=== PATIENT | female | born 1985 | race Caucasian/White ===

== ENCOUNTER 2023-07-16 08:59 | Outpatient (AMB) | payer MEDICAID, SELFPAY ==
--- NOTE | 2023-07-16 09:00 | A.OFFVIS_ITS ---
Intake Vital Signs 07/16/23 09:06 BP 128/84 Blood Pressure Location Lt radial Position Sitting Pulse 85 Pulse Source Pulse Oximeter Pulse Oximetry (%) 97 Oxygen Delivery Method Room Air Intake Visit Reasons: MAT Intake Intake Note: The patient presents for a mat intake Supervisor Engraving Required: No Allergies No Known Allergies [No Known Allergies*] Allergy (Unverified 07/16/23 09:08) Do you need a note to return to daycare/school/sports/work: No HPI MAT Intake HPI Details Patient presents for intake in evaluation. Interested in transitioning from methadone to buprenorphine with goal of Sublocade as a way to taper off of medications for opiate use disorder altogether. Started taper 11 weeks ago Was at 65mg methadone currently at 47mg Feels okay no withdrawal sx sponsor, therapist all on board with transition [facility] In recovery 2 years Prior to this patient had been using opiates for 7 years started off with pills following a back surgery-- transition to intranasal and IV heroin no history of etoh Treatment history: Multiple ATS admissions no history of overdsose No history of Suboxone Strong family history of addiction No BH history Medical history: Hepatitits C --in progress of starting treatment cholesystectomy nexplanon removed last week --will be transitioning to oral contraceptives Aside from multivitamins and methadone patient does not take any other medic ations NKA Lives with and twin toddler sons looking to go back to school Leslie Hodge -therapist [employer] [facility] Review of Systems Const Reports as per HPI and Reports no additional complaints Physical Exam Vital Signs: Last Vital Signs Pulse 85 07/16/23 09:06 BP 128/84 07/16/23 09:06 Pulse Ox 97 07/16/23 09:06 Oxygen Delivery Method Room Air 07/16/23 09:06 Const General: cooperative and healthy appearing Nutritional Appearance: average body habitus Orientation/consciousness: patient oriented x3 Neuro General: patient oriented x3 Psych Appearance: well kempt Speech and movement: Clear speech present Affect: normal affect Attitude: cooperative Thought process: Normal thought process present Thought content: Normal thought content present Insight: Good insight present (Psych) Judgement: Good judgement present (Psych) Results AMB 14 Panel Urine Drug Screen Urine Marijuana (THC) Negative Last Edit by Dorcas Palacios CMA on 07/16/23 10:25 Urine Cocaine Negative Last Edit by Dorcas Palacios CMA on 07/16/23 10:25 Urine Morphine Negative Last Edit by Dorcas Palacios CMA on 07/16/23 10:25 Urine Methamphetamine Negative Last Edit by Dorcas Palacios CMA on 07/16/23 10:25 Urine Amphetamine Negative Last Edit by Dorcas Palacios CMA on 07/16/23 10:2 5 Urine Benzodiazepine Negative Last Edit by Dorcas Palacios CMA on 07/16/23 10:25 Urine Barbiturates Negative Last Edit by Dorcas Palacios CMA on 07/16/23 10: 25 Urine Methadone Positive Last Edit by Dorcas Palacios CMA on 07/16/23 10:25 Urine Buprenorphine Negative Last Edit by Dorcas Palacios CMA on 07/16/23 10 :25 Urine Tricyclic Antidepressant Negative Last Edit by Dorcas Palacios CMA on 07/16/23 10:25 Urine MDMA Negative Last Edit by Dorcas Palacios CMA on 07/16/23 10:25 Urine Oxycodone Negative Last Edit by Dorcas Palacios CMA on 07/16/23 10:25 Urine Phencyclidine Negative Last Edit by Dorcas Palacios CMA on 07/16/23 10 :25 Urine Propoxyphene Negative Last Edit by Dorcas Palacios CMA on 07/16/23 10: 25 Results Reviewed Results Reviewed: Laboratory Last Values POC Urine Buprenorphine Negative 07/16/23 10:21 POC Urine Morphine Negative 07/16/23 10:21 POC Urine Oxycodone Negative 07/16/23 10:21 POC Urine Methadone Positive 07/16/23 10:21 POC Urine Propoxyphene Negative 07/16/23 10:21 POC Urine Barbiturates Negative 07/16/23 10:21 POC U Tricyclic Antidpr Negative 07/16/23 10:21 POC Urine PCP Negative 07/16/23 10:21 POC Ur Amphetamines Negative 07/16/23 10:21 POC Ur Methamphetamine Negative 07/16/23 10:21 POC Urine MDMA Negative 07/16/23 10:21 POC Ur Benzodiazepine Negative 07/16/23 10:21 POC Urine Cocaine Negative 07/16/23 10:21 POC Ur Marijuana (THC) Negative 07/16/23 10:21 Assessment & Plan Assessment & Plan (1) Opioid use disorder, severe, in sustained remission: Code(s): F11.21 - Opioid dependence, in remission Plan: * Review would transition plan from methadone to buprenorphine using low-dose buprenorphine. Reviewed with patient that she no longer needed to continue taper as the micro dose induction could restarted with current dose * Reviewed having to be stable on buprenorphine dose prior to transitioning to Sublocade * Patient has done a lot of research on her own and is very familiar with the medication and mechanism of action. * Releases of information signed for her OTP * Patient to discuss with her clinician at her clinic and then call the office to let us know if this is something she would like to continue moving forward with. Provided patient with written instructions on what titration of buprenorphine whilel on methadone would look like * Patient to follow-up Orders: Orders AMB 14 Panel Urine Drug Screen Today Z51.81 - Encounter for therapeutic drug level monitoring Coding Level of Care Code New Pt Level 4 (06587) Diagnoses Opioid use disorder, severe, in sustained remission F11.21
[2023-07-16 09:06] VITALS: BP 128/84; PULSE 85; O2SAT 97
== END 2023-07-16 09:47 | disposition home or self-care (01) ==
LOC: HO.HCC 08:59
PROVIDERS: PCP Physician Assistant; Visit Provider Nurse Practitioner Psychiatric/Mental Health
DX: Z51.81 Encounter for therapeutic drug level monitoring (principal); F11.21 Opioid dependence, in remission
CPT/HCPCS: 99204

== ENCOUNTER → 2023-07-16 08:59 | Outpatient (BNVA) | payer MEDICAID, SELFPAY | PROVIDERS: PCP Physician Assistant; Visit Provider Nurse Practitioner Psychiatric/Mental Health | DX: F11.21 Opioid dependence, in remission (principal); Z51.81 Encounter for therapeutic drug level monitoring; Z79.899 Other long term (current) drug therapy | CPT/HCPCS: 80305; 99202 ==

== ENCOUNTER 2023-08-01 13:47 | Outpatient (AMB) | payer MEDICAID, SELFPAY ==
--- NOTE | 2023-08-01 13:50 | A.OFFVIS_ITS ---
Intake Vital Signs 08/01/23 14:01 BP 122/84 Blood Pressure Location Lt radial Position Sitting Pulse 79 Pulse Source Pulse Oximeter Pulse Oximetry (%) 99 Oxygen Delivery Method Room Air Intake Visit Reasons: MAT Visit Intake Note: the patient presents for a mat visit Edge Glue Machine Tender Required: No Allergies No Known Allergies [No Known Allergies*] Allergy (Unverified 08/01/23 13:51) Do you need a note to return to daycare/school/sports/work: No HPI MAT Visit HPI Details Patient presents for follow up Transitioned form methadone to suboxone Still having some withdrawal sx--sweating and mild backache. Patient not concerned about these symptoms however she is visibly diaphoretic during our visit. She is reporting constipation. Last methadone dose was on 07/25 Discussed increasing dose to minimize current symptoms. Patient agreeable. Goal continues to be to transition to Sublocade Review of Systems Const Reports as per HPI and Reports no additional complaints Physical Exam Vital Signs: Last Vital Signs Pulse 79 08/01/23 14:01 BP 122/84 08/01/23 14:01 Pulse Ox 99 08/01/23 14:01 Oxygen Delivery Method Room Air 08/01/23 14:01 Const General: cooperative and healthy appearing Nutritional Appearance: average body habitus Orientation/consciousness: patient oriented x3 Neuro General: patient oriented x3 Psych Appearance: well kempt Speech and movement: Clear speech present Affect: normal affect Attitude: cooperative Thought process: Normal thought process present Thought content: Normal thought content present Insight: Good insight present (Psych) Judgement: Good judgement present (Psych) Assessment & Plan Assessment & Plan (1) Opioid use disorder, severe, in sustained remission: Code(s): F11.21 - Opioid dependence, in remission Plan: * Increased Suboxone dose to 12 mg b.i.d.. Discussed splitting afternoon dose in to if she felt it would be beneficial. * Colace to address constipation * Encouraged to call the office with any questions or concerns prior to next appointment Orders: Orders AMB 14 Panel Urine Drug Screen 08/01/23 Z51.81 - Encounter for therapeutic drug level monitoring Medications: New docusate sodium (Colace) 100 mg PO BID PRN 60 caps 0RF constipation buprenorphine-naloxone 12-3 mg (Suboxone) 1 film buccal BID 15 ea 0RF Discontinued buprenorphine-naloxone 2-0.5 mg (Suboxone) Discontinued Reason: Patient Completed Course 1 film sublingual BID 11 ea 0RF buprenorphine-naloxone 8-2 mg (Suboxone) to be started following induction with 2mg films Discontinued Reason: Patient Completed Course 1 film sublingual BID 14 ea 0RF Coding Level of Care Code Est Pt Level 4 (56925) Diagnoses Opioid use disorder, severe, in sustained remission F11.21
[2023-08-01 14:01] VITALS: BP 122/84; PULSE 79; O2SAT 99
== END 2023-08-01 14:20 | disposition home or self-care (01) ==
LOC: HO.HCC 13:47
PROVIDERS: PCP Physician Assistant; Visit Provider Nurse Practitioner Psychiatric/Mental Health
DX: Z51.81 Encounter for therapeutic drug level monitoring (principal)
CPT/HCPCS: 99214

== ENCOUNTER → 2023-08-01 13:47 | Outpatient (BNVA) | payer MEDICAID, SELFPAY | PROVIDERS: PCP Physician Assistant; Visit Provider Nurse Practitioner Psychiatric/Mental Health | DX: F11.20 Opioid dependence, uncomplicated (principal) | CPT/HCPCS: 80305; 99212 ==

== ENCOUNTER 2023-08-06 09:34 | Outpatient (AMB) | payer MEDICAID, SELFPAY ==
--- NOTE | 2023-08-06 09:36 | A.OFFVIS_ITS ---
Intake Vital Signs 08/06/23 09:42 BP 118/72 Blood Pressure Location Lt radial Position Sitting Pulse 83 Pulse Source Pulse Oximeter Pulse Oximetry (%) 96 Oxygen Delivery Method Room Air Intake Visit Reasons: MAT Visit Intake Note: the patient presents for a mat visit Operational Risk Manager Required: No Allergies No Known Allergies [No Known Allergies*] Allergy (Unverified 08/06/23 09:42) Do you need a note to return to daycare/school/sports/work: No HPI MAT Visit HPI Details Patient presents for follow-up. Dose increased during last visit to 12 mg b.i.d.. Patient reports that all withdrawal symptoms have resolved with dose increased. No longer experiencing diaphoresis, back pain or feeling that her nose is running. Constipation has also resolved with Colace. Would like to move forward with plan for injection. Review of Systems Const Reports as per HPI and Reports no additional complaints Physical Exam Vital Signs: Last Vital Signs Pulse 83 08/06/23 09:42 BP 118/72 08/06/23 09:42 Pulse Ox 96 08/06/23 09:42 Oxygen Delivery Method Room Air 08/06/23 09:42 Const General: cooperative, healthy appearing and no acute distress Limitations: no limitations Psych Appearance: well kempt Speech and movement: Clear speech present Affect: normal affect Attitude: cooperative Thought process: Normal thought process present Thought content: Normal thought content present Insight: Good insight present (Psych) Judgement: Good judgement present (Psych) Assessment & Plan Assessment & Plan (1) Opioid use disorder, severe, in sustained remission: Code(s): F11.21 - Opioid dependence, in remission Plan: * Continue Suboxone at 12 mg b.i.d. * Sublocade injection ordered. Discussed process for providing consent * Follow up 2 weeks Medications: New buprenorphine ER (Sublocade) 300 mg (1.5 mL) subcut .q 4 weeks 1.5 mL 5RF Coding Level of Care Code Est Pt Level 3 (12972) Diagnoses Opioid use disorder, severe, in sustained remission F11.21
[2023-08-06 09:42] VITALS: BP 118/72; PULSE 83; O2SAT 96
== END 2023-08-06 09:51 | disposition home or self-care (01) ==
LOC: HO.HCC 09:34
PROVIDERS: PCP Physician Assistant; Visit Provider Nurse Practitioner Psychiatric/Mental Health
DX: F11.21 Opioid dependence, in remission (principal)
CPT/HCPCS: 99213

== ENCOUNTER → 2023-08-06 09:34 | Outpatient (BNVA) | payer MEDICAID, SELFPAY | PROVIDERS: PCP Physician Assistant; Visit Provider Nurse Practitioner Psychiatric/Mental Health | DX: F11.20 Opioid dependence, uncomplicated (principal) | CPT/HCPCS: 99212 ==

== ENCOUNTER 2023-08-20 08:59 | Outpatient (AMB) | payer MEDICAID, SELFPAY ==
--- NOTE | 2023-08-20 09:12 | A.OFFVIS_ITS ---
Intake Vital Signs 08/20/23 10:06 BP 100/70 Blood Pressure Location Lt brachial Position Sitting Pulse 67 Pulse Oximetry (%) 97 Intake Visit Reasons: MAT Visit Allergies No Known Allergies [No Known Allergies*] Allergy (Unverified 08/06/23 09:42) HPI MAT Visit HPI Details Patient presents for OUD treatment follow up and 1st Sublocade injection. Has been tolerating Suboxone 24mg PO without any issues. Excited to start injection. No questions at this time Reviewed risks and potential side effects. Patient verbalized understaning Review of Systems Const Reports as per HPI and Reports no additional complaints Physical Exam Vital Signs: Last Vital Signs Pulse 67 08/20/23 10:06 BP 100/70 08/20/23 10:06 Pulse Ox 97 08/20/23 10:06 Const General: cooperative, healthy appearing and no acute distress Limitations: no limitations Psych Appearance: well kempt Speech and movement: Clear speech present Affect: normal affect Attitude: cooperative Thought process: Normal thought process present Thought content: Normal thought content present Insight: Good insight present (Psych) Judgement: Good judgement present (Psych) Office Meds Sublocade 300 mg/1.5 mL solution,extended release subcutaneous syringe Performing Provider: Fernanda Tucker CNP Performing Location: [facility] Administered by: Daiana Nevarez RN on 08/20/23 11:17 Dose Route Admin Location Dispensed Lot Number Expiration Date [facility] Lead [employer] 300 mg subcut RLQ 1.5 mL [id number] 01/23/25 [address]-1 [employer] Comments: Education provided, monitor site for pain, swelling, redness, discharge, fever, call [facility]. Reviewed patient education to leave site alone, no heat/ice, picking the area. Pt verbalized understanding. Pt tolerated injection. Results AMB Test Urine AMB Test Urine Negative Last Edit by Daiana Nevarez RN on 08/20/23 11:20 Results Reviewed Results Reviewed: Laboratory Last Values [facility] Negative 08/20/23 11:19 Assessment & Plan Assessment & Plan (1) Opioid use disorder, severe, in sustained remission: Code(s): F11.21 - Opioid dependence, in remission Plan: * tolerated injection * follow up 4 weeks * encouraged to call office with any concerns Orders: Orders AMB Buprenorphine Injection - Patient Supplied Today F11.21 - Opioid dependence, in remission AMB HCG Urine Test Today F11.21 - Opioid dependence, in remission Coding Level of Care Code Est Pt Level 3 (17909) Diagnoses Opioid use disorder, severe, in sustained remission F11.21
[2023-08-20 10:06] VITALS: BP 100/70; PULSE 67; O2SAT 97
== END 2023-08-20 10:04 | disposition home or self-care (01) ==
LOC: HO.HCC 08:59
PROVIDERS: PCP Physician Assistant; Visit Provider Nurse Practitioner Psychiatric/Mental Health
DX: F11.21 Opioid dependence, in remission (principal)
CPT/HCPCS: 99213; Q9992

== ENCOUNTER → 2023-08-20 08:59 | Outpatient (BNVA) | payer MEDICAID, SELFPAY | PROVIDERS: PCP Physician Assistant; Visit Provider Nurse Practitioner Psychiatric/Mental Health | DX: F11.21 Opioid dependence, in remission (principal); Z32.02 Encounter for pregnancy test, result negative | CPT/HCPCS: 81025; 96372; 99212 ==

== ENCOUNTER 2023-09-18 14:39 | Outpatient (AMB) | payer OTHER, SELFPAY ==
--- NOTE | 2023-09-18 14:47 | A.OFFVIS_ITS ---
Intake Vital Signs 09/18/23 14:57 BP 108/74 Blood Pressure Location Lt radial Position Sitting Pulse 76 Pulse Source Pulse Oximeter Pulse Oximetry (%) 98 Oxygen Delivery Method Room Air Intake Visit Reasons: MAT Visit Intake Note: The patient presents for a sub inj Exhaust Machine Operator Required: No Allergies No Known Allergies [No Known Allergies*] Allergy (Unverified 09/18/23 14:51) Do you need a note to return to daycare/school/sports/work: No HPI MAT Visit HPI Details Patient presents for follow up and Sublocade injection (#2) She is reporting a positive month and denies any withdrawal sx, or need to take bupre in btwn. She states that the evening of her first injection she had a headache and felt a bit tired, but that subsided and she was fine the following morning. 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 Bright affect, future oriented. Review of Systems Const Reports as per HPI and Reports no additional complaints Physical Exam Vital Signs: Last Vital Signs Pulse 76 09/18/23 14:57 BP 108/74 09/18/23 14:57 Pulse Ox 98 09/18/23 14:57 Oxygen Delivery Method Room Air 09/18/23 14:57 Office Meds Sublocade 300 mg/1.5 mL solution,extended release subcutaneous syringe Performing Provider: Fernanda Tucker CNP Performing Location: [facility] Administered by: Neelam Jacob RN on 09/18/23 15:26 Dose Route Admin Location Dispensed Lot Number Expiration Date [facility] Motorcycle Builder 300 mg subcut rlq 1.5 mL [id number] 02/23/25 [address]-4 [employer]. Comments: assessed previous inj site- no signs or symptoms of infection noted pt tolerated inj well, educated on s/s of infection to monitor-advised to call [facility] if any questions or concerns. Results AMB 14 Panel Urine Drug Screen Urine Marijuana (THC) Negative Last Edit by Dorcas Palacios CMA on 09/18/23 15:01 Urine Cocaine Negative Last Edit by Dorcas Palacios CMA on 09/18/23 15:01 Urine Morphine Negative Last Edit by Dorcas Palacios CMA on 09/18/23 15:01 Urine Methamphetamine Negative Last Edit by Dorcas Palacios CMA on 09/18/23 15:01 Urine Amphetamine Negative Last Edit by Dorcas Palacios CMA on 09/18/23 15:0 1 Urine Benzodiazepine Negative Last Edit by Dorcas Palacios CMA on 09/18/23 15:01 Urine Barbiturates Negative Last Edit by Dorcas Palacios CMA on 09/18/23 15: 01 Urine Methadone Negative Last Edit by Dorcas Palacios CMA on 09/18/23 15:01 Urine Buprenorphine Positive Last Edit by Dorcas Palacios CMA on 09/18/23 15 :01 Urine Tricyclic Antidepressant Negative Last Edit by Dorcas Palacios CMA on 09/18/23 15:01 Urine MDMA Negative Last Edit by Dorcas Palacios CMA on 09/18/23 15:01 Urine Oxycodone Negative Last Edit by Dorcas Palacios CMA on 09/18/23 15:01 Urine Phencyclidine Negative Last Edit by Dorcas Palacios CMA on 09/18/23 15 :01 Urine Propoxyphene Negative Last Edit by Dorcas Palacios CMA on 09/18/23 15: 01 AMB Test Urine AMB Test Urine Negative Last Edit by Dorcas Palacios CMA on 15:02 Results Reviewed Results Reviewed: Laboratory Last Values [facility] Negative 09/18/23 14:51 POC Urine Buprenorphine Positive 09/18/23 14:51 POC Urine Morphine Negative 09/18/23 14:51 POC Urine Oxycodone Negative 09/18/23 14:51 POC Urine Methadone Negative 09/18/23 14:51 POC Urine Propoxyphene Negative 09/18/23 14:51 POC Urine Barbiturates Negative 09/18/23 14:51 POC U Tricyclic Antidpr Negative 09/18/23 14:51 POC Urine PCP Negative 09/18/23 14:51 POC Ur Amphetamines Negative 09/18/23 14:51 POC Ur Methamphetamine Negative 09/18/23 14:51 POC Urine MDMA Negative 09/18/23 14:51 POC Ur Benzodiazepine Negative 09/18/23 14:51 POC Urine Cocaine Negative 09/18/23 14:51 POC Ur Marijuana (THC) Negative 09/18/23 14:51 Assessment & Plan Assessment & Plan (1) Opioid use disorder, severe, in sustained remission: Code(s): F11.21 - Opioid dependence, in remission Plan: * tolerated injection * follow up 4 weeks for 100mg injection * encouraged to call office with any questions or concerns prior to next appt. Orders: Orders AMB 14 Panel Urine Drug Screen 09/18/23 Z51.81 - Encounter for therapeutic drug level monitoring AMB Buprenorphine Injection - Patient Supplied 09/18/23 F11.21 - Opioid dependence, in remission AMB HCG Urine Test 09/18/23 Z32.01 - Encounter for test, result positive, Z32.02 - Encounter for test, result negative Coding Level of Care Code Est Pt Level 3 (58927) Diagnoses Opioid use disorder, severe, in sustained remission F11.21
[2023-09-18 14:57] VITALS: BP 108/74; PULSE 76; O2SAT 98
== END 2023-09-18 15:25 | disposition home or self-care (01) ==
PROVIDERS: PCP Physician Assistant; Visit Provider Nurse Practitioner Psychiatric/Mental Health
DX: F11.21 Opioid dependence, in remission (principal)
CPT/HCPCS: 99213

== ENCOUNTER → 2023-09-18 14:39 | Outpatient (BNVA) | payer MEDICAID, SELFPAY | PROVIDERS: PCP Physician Assistant; Visit Provider Nurse Practitioner Psychiatric/Mental Health | DX: Z51.81 Encounter for therapeutic drug level monitoring (principal); F11.21 Opioid dependence, in remission; Z32.02 Encounter for pregnancy test, result negative | CPT/HCPCS: 80305; 81025; 96372; 99212; Q9992 ==

== ENCOUNTER 2023-10-16 13:28 | Outpatient (AMB) | payer MEDICAID, SELFPAY ==
--- NOTE | 2023-10-16 13:30 | MHC.OFFVIS ---
Intake Vital Signs 10/16/23 13:40 BP 110/78 Blood Pressure Location Lt radial Position Sitting Pulse 88 Pulse Source Pulse Oximeter Pulse Oximetry (%) 98 Oxygen Delivery Method Room Air Intake Visit Reasons: MAT Visit Intake Note: THE Patient presents for a sub inj Missile Facilities Repairer Required: No Allergies No Known Allergies [No Known Allergies*] Allergy (Unverified 10/16/23 13:31) Do you need a note to return to daycare/school/sports/work: No HPI MAT Visit HPI Details Patient presents for follow up and Sublocade injection. Should be receiving 100mg injection She reports that following two previous injections, she had a headache and pressure behind her eyes --eyelids feel heavy This only lasted one day then she was back to herself. 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 Very excited about this. Patient scheduled to receive sublocade 100mg today, however 300mg dose was inadvertently ordered by this headline writer. Discussed with patient and offered to order 100mg and call upon arrival--also able to provide PO suboxone if necessary. Patient requesting to have 300mg dose and receive 100mg dose next visit. Review of Systems Const Reports as per HPI and Reports no additional complaints Physical Exam Vital Signs: Last Vital Signs Pulse 88 10/16/23 13:40 BP 110/78 10/16/23 13:40 Pulse Ox 98 10/16/23 13:40 Oxygen Delivery Method Room Air 10/16/23 13:40 Const General: cooperative, healthy appearing and no acute distress Limitations: no limitations Psych Appearance: well kempt Speech and movement: Clear speech present Affect: normal affect Attitude: cooperative Thought process: Normal thought process present Thought content: Normal thought content present Insight: Good insight present (Psych) Judgement: Good judgement present (Psych) Office Meds Sublocade 300 mg/1.5 mL solution,extended release subcutaneous syringe Performing Provider: Fernanda Tucker CNP Performing Location: [facility] Administered by: Tori Cordero on 10/16/23 14:45 Dose Route Admin Location Dispensed Lot Number Expiration Date [facility] Clicking Machine Operator 300 mg subcut LLQ 1.5 mL [id number] 05/26/24 [id number] [employer] Comments: Pt tolerated injection well. Educated on signs/symptoms of infection, encouraged to call the [facility] with questions or concerns. Results AMB Test Urine AMB Test Urine Negative Last Edit by Dorcas Palacios CMA on 10/16/23 13:39 Results Reviewed Results Reviewed: Laboratory Last Values [facility] Negative 10/16/23 13:32 Assessment & Plan Assessment & Plan (1) Opioid use disorder, severe, in sustained remission: Code(s): F11.21 - Opioid dependence, in remission Plan: tolerated injection follow up 4 weeks for 100mg injection encouraged to call office with any questions or concerns prior to next appt. Orders: Orders AMB HCG Urine Test 10/16/23 Z32.02 - Encounter for test, result negative, Z32.01 - Encounter for test, result positive AMB Buprenorphine Injection - Patient Supplied 10/16/23 F11.21 - Opioid dependence, in remission Medications: New buprenorphine ER (Sublocade) 100 mg (0.5 mL) subcut .every 28 days 0.5 mL 3RF Discontinued buprenorphine ER Discontinued Reason: Patient Completed Course 300 mg (1.5 mL) subcut .q 4 weeks 1.5 mL 5RF Coding Level of Care Code Est Pt Level 3 (71216) Diagnoses Opioid use disorder, severe, in sustained remission F11.21
[2023-10-16 13:40] VITALS: BP 110/78; PULSE 88; O2SAT 98
== END 2023-10-16 14:29 | disposition home or self-care (01) ==
PROVIDERS: PCP Physician Assistant; Visit Provider Nurse Practitioner Psychiatric/Mental Health
DX: F11.21 Opioid dependence, in remission (principal)
CPT/HCPCS: 99213

== ENCOUNTER → 2023-10-16 13:28 | Outpatient (BNVA) | payer MEDICAID, SELFPAY | PROVIDERS: PCP Physician Assistant; Visit Provider Nurse Practitioner Psychiatric/Mental Health | DX: Z51.81 Encounter for therapeutic drug level monitoring (principal); F11.21 Opioid dependence, in remission; Z32.02 Encounter for pregnancy test, result negative | CPT/HCPCS: 81025; 96372; 99212; Q9992 ==

== ENCOUNTER 2023-11-15 13:14 | Outpatient (AMB) | payer MEDICAID, SELFPAY ==
--- NOTE | 2023-11-15 13:17 | AM.OFFVISNUR ---
Intake Vital Signs 11/15/23 13:27 BP 124/70 Blood Pressure Location Lt radial Position Sitting Pulse 90 Pulse Source Pulse Oximeter Pulse Oximetry (%) 99 Oxygen Delivery Method Room Air Intake Visit Reasons: MAT VISIT Intake Note: The patient presents for a sub inj Health And Physical Education Professor Required: No Allergies No Known Allergies [No Known Allergies*] Allergy (Unverified 11/15/23 13:20) Do you need a note to return to daycare/school/sports/work: No Nursing Note Pt presenting for 4 week follow up and Sublocade 100mg injection. Pt in good spirits and looking forward to the holidays. Pt reports doing well on injectable with no need for oral supplementation. Pt tolerated injection well. Education provided on signs and symptoms of infection and will call the office if any concerns or questions arise. Results AMB Test Urine AMB Test Urine Negative Last Edit by Dorcas Palacios CMA on 11/15/23 13:29 Coding Assessment & Plan Assessment & Plan Orders: Orders AMB HCG Urine Test Today Z32.01 - Encounter for test, result positive, Z32.02 - Encounter for test, result negative Fernanda Tucker CNP AMB Buprenorphine Injection - Patient Supplied Today F11.21 - Opioid dependence, in remission Carina Chacko NP Medications: New Sublocade ER (buprenorphine) 100 mg (0.5 mL) subcut ONCE 0.5 mL 0RF NS F11.21 - Opioid dependence, in remission Carina Chacko, GARETH
[2023-11-15 13:27] VITALS: BP 124/70; PULSE 90; O2SAT 99
== END 2023-11-15 16:00 | disposition home or self-care (01) ==
PROVIDERS: PCP Physician Assistant
DX: Z32.02 Encounter for pregnancy test, result negative (principal); Z32.01 Encounter for pregnancy test, result positive; F11.21 Opioid dependence, in remission

== ENCOUNTER → 2023-11-15 13:14 | Outpatient (BNVA) | payer MEDICAID, SELFPAY | PROVIDERS: PCP Physician Assistant | DX: Z51.81 Encounter for therapeutic drug level monitoring (principal); F11.21 Opioid dependence, in remission; Z32.02 Encounter for pregnancy test, result negative | CPT/HCPCS: 81025; 96372; Q9992 ==

== ENCOUNTER 2023-12-13 10:15 | Outpatient (AMB) | payer MEDICAID, SELFPAY ==
--- NOTE | 2023-12-13 10:19 | MHC.AM.SUB ---
Intake Vital Signs 12/13/23 10:27 BP 110/70 Blood Pressure Location Lt radial Position Sitting Pulse 82 Pulse Source Pulse Oximeter Pulse Oximetry (%) 97 Oxygen Delivery Method Room Air Intake Visit Reasons: MAT VISIT Intake Note: the patient presents for a sub inj Acid Filler Required: No Allergies No Known Allergies [No Known Allergies*] Allergy (Unverified 12/13/23 10:28) Do you need a note to return to daycare/school/sports/work: No Results AMB Test Urine AMB Test Urine Negative Last Edit by Dorcas Palacios CMA on 12/13/23 10:29 Assessment & Plan Assessment & Plan Orders: Orders AMB HCG Urine Test Today Z32.01 - Encounter for test, result positive, Z32.02 - Encounter for test, result negative Coding
[2023-12-13 10:27] VITALS: BP 110/70; PULSE 82; O2SAT 97
--- NOTE | 2023-12-13 10:53 | AM.OFFVISNUR ---
Intake Vital Signs 12/13/23 10:27 BP 110/70 Blood Pressure Location Lt radial Position Sitting Pulse 82 Pulse Source Pulse Oximeter Pulse Oximetry (%) 97 Oxygen Delivery Method Room Air Intake Visit Reasons: MAT VISIT Allergies No Known Allergies [No Known Allergies*] Allergy (Unverified 12/13/23 10:28) Nursing Note Patient received Sublocade injection today, was in good spirits, very excited to tell me she is 3 years in remission and has had no cravings. Asked to see Fernanda next visit to talk about next steps with medication and treatment. 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 Office Meds Sublocade 100 mg/0.5 mL solution,extended release subcutaneous syringe Performing Provider: Fernanda Tucker CNP Performing Location: [facility] Administered by: Marysol Grady RN on 12/13/23 10:30 Dose Route Admin Location Dispensed Lot Number Expiration Date [facility] Chief Credit Officer 100 mg subcut LLQ 0.5 mL [id number] 12/27/24 [address]-0 [employer]. Comments: Pt tolerated injection well. Educated on S/S of infection. Encouraged to call [facility] with questions/concerns. Results AMB Test Urine AMB Test Urine Negative Last Edit by Dorcas Palacios CMA on 12/13/23 10:29 Coding Assessment & Plan Assessment & Plan Orders: Orders AMB HCG Urine Test Today Z32.01 - Encounter for test, result positive, Z32.02 - Encounter for test, result negative AMB Buprenorphine Injection - Patient Supplied Today F11.21 - Opioid dependence, in remission
== END 2023-12-13 10:56 | disposition home or self-care (01) ==
PROVIDERS: PCP Physician Assistant
DX: Z32.02 Encounter for pregnancy test, result negative (principal); Z32.01 Encounter for pregnancy test, result positive; F11.21 Opioid dependence, in remission

== ENCOUNTER → 2023-12-13 10:15 | Outpatient (BNVA) | payer MEDICAID, SELFPAY | PROVIDERS: PCP Physician Assistant | DX: Z32.01 Encounter for pregnancy test, result positive (principal); F11.21 Opioid dependence, in remission | CPT/HCPCS: 81025; 96372; Q9992 ==

== ENCOUNTER 2024-01-09 14:25 | Outpatient (AMB) | payer OTHER, SELFPAY ==
--- NOTE | 2024-01-09 14:27 | MHC.AM.SUB ---
Intake Vital Signs 01/09/24 14:37 BP 110/74 Blood Pressure Location Lt radial Position Sitting Pulse 86 Pulse Source Pulse Oximeter Pulse Oximetry (%) 97 Oxygen Delivery Method Room Air Intake Visit Reasons: MAT VISIT/Sub Inj Intake Note: The patient presents for a sub inj Allergies No Known Allergies [No Known Allergies*] Allergy (Unverified 01/09/24 14:38) HPI MAT VISIT/Sub Inj HPI Details Patient presents for follow up and Sublocade injection Working at [employer] Still engaged with recovery supports completed Hep. C treatment Will be seeing PCP soon Review of Systems Const Reports as per HPI and Reports no additional complaints Physical Exam Vital Signs: Last Vital Signs Pulse 86 01/09/24 14:37 BP 110/74 01/09/24 14:37 Pulse Ox 97 01/09/24 14:37 Oxygen Delivery Method Room Air 01/09/24 14:37 Const General: cooperative, healthy appearing and no acute distress Limitations: no limitations Psych Appearance: well kempt Speech and movement: Clear speech present Affect: normal affect Attitude: cooperative Thought process: Normal thought process present Thought content: Normal thought content present Insight: Good insight present (Psych) Judgement: Good judgement present (Psych) Office Meds Sublocade 100 mg/0.5 mL solution,extended release subcutaneous syringe Performing Provider: Fernanda Tucker CNP Performing Location: [facility] Administered by: Marysol Grady RN on 01/09/24 15:05 Dose Route Admin Location Dispensed Lot Number Expiration Date [facility] X Ray Tech 100 mg subcut RLQ 0.5 mL [id number] 12/27/24 [address]-4 [employer]. Results AMB Test Urine AMB Test Urine Negative Last Edit by Dorcas Palacios CMA on 01/09/24 14:40 Results Reviewed Results Reviewed: Laboratory Last Values [facility]st Clinic Negative 01/09/24 14:38 Assessment & Plan Assessment & Plan (1) Opioid use disorder, severe, in sustained remission: Code(s): F11.21 - Opioid dependence, in remission Plan: tolerated injection follow up 6 weeks for 100mg injection encouraged to call office with any questions or concerns prior to next appt. Orders: Orders AMB Buprenorphine Injection - Patient Supplied 01/09/24 F11.21 - Opioid dependence, in remission AMB HCG Urine Test 01/09/24 Z32.01 - Encounter for test, result positive, Z32.02 - Encounter for test, result negative Medications: Discontinued clonidine HCl Discontinued Reason: Patient Completed Course 0.1 mg PO BID PRN 10 tabs 0RF withdrawal symptoms hydroxyzine HCl Discontinued Reason: Patient Completed Course 25 mg PO TID PRN 20 tabs 0RF anxiety Coding Level of Care Code Est Pt Level 3 (18756) Diagnoses Opioid use disorder, severe, in sustained remission F11.21
[2024-01-09 14:37] VITALS: BP 110/74; PULSE 86; O2SAT 97
== END 2024-01-09 15:10 | disposition home or self-care (01) ==
PROVIDERS: PCP Physician Assistant; Visit Provider Nurse Practitioner Psychiatric/Mental Health
DX: F11.21 Opioid dependence, in remission (principal)
CPT/HCPCS: 99213

== ENCOUNTER → 2024-01-09 14:25 | Outpatient (BNVA) | payer OTHER, SELFPAY | PROVIDERS: PCP Physician Assistant; Visit Provider Nurse Practitioner Psychiatric/Mental Health | DX: F11.20 Opioid dependence, uncomplicated (principal) | CPT/HCPCS: 81025; 96372; Q9992 ==

== ENCOUNTER 2024-02-21 14:50 | Outpatient (AMB) | payer OTHER, SELFPAY ==
--- NOTE | 2024-02-21 14:54 | A.OFFVISCC_ITS ---
Intake Vital Signs 02/21/24 15:03 BP 102/70 Blood Pressure Location Lt radial Position Sitting Pulse 78 Pulse Source Pulse Oximeter Pulse Oximetry (%) 96 Oxygen Delivery Method Room Air Intake Visit Reasons: Sub Inj Intake Note: The patient present for a sub inj viisit 2Nd Pressman Required: No Allergies No Known Allergies [No Known Allergies*] Allergy (Unverified 02/21/24 14:55) HPI Sub Inj HPI Details Pt presents for sublocade injection She received last injection 6 weeks ago and feels well, no breakthrough withdrawal symptoms Reports she still has a few 12mg films left over and does not need bridge Has head cold at this time she is getting over No concerns for recovery at this time Review of Systems Const Reports as per HPI Physical Exam Vital Signs: Last Vital Signs Pulse 78 02/21/24 15:03 BP 102/70 02/21/24 15:03 Pulse Ox 96 02/21/24 15:03 Oxygen Delivery Method Room Air 02/21/24 15:03 Const General: cooperative and healthy appearing Resp Effort & Inspection: normal respiratory effort Psych Appearance: grossly normal Mental Status: mental status grossly normal Speech and movement: Normal speech and movement present Affect: normal affect Attitude: cooperative Office Meds Sublocade 100 mg/0.5 mL solution,extended release subcutaneous syringe Performing Provider: Carina Chacko NP Performing Location: [facility] Administered by: Carina Chacko NP on 02/21/24 15:51 Dose Route Admin Location Dispensed Lot Number Expiration Date [facility] Pickling Machine Operator 100 mg subcut LLQ 0.5 mL [id number] 08/25/24 [address]-9 [employer]. Comments: Pt tolerated injection well. Reviewed signs and symptoms of infection. Encouraged her to call [facility] with questions or concerns. Results AMB Test Urine AMB Test Urine Negative Last Edit by Dorcas Palacios CMA on 15:07 Results Reviewed Results Reviewed: Laboratory Last Values Tst Clinic Negative 02/21/24 14:56 Assessment & Plan Assessment & Plan (1) Opioid use disorder, severe, in sustained remission: Code(s): F11.21 - Opioid dependence, in remission Plan: -Tolerating injection -Follow up 6 weeks Orders: Orders AMB HCG Urine Test Today Z32.01 - Encounter for test, result positive, Z32.02 - Encounter for test, result negative AMB Buprenorphine Injection - Patient Supplied Today F11.21 - Opioid dependence, in remission Coding Level of Care Code Est Pt Level 3 (33790) Diagnoses Opioid use disorder, severe, in sustained remission F11.21
[2024-02-21 15:03] VITALS: BP 102/70; PULSE 78; O2SAT 96
== END 2024-02-21 15:21 | disposition home or self-care (01) ==
PROVIDERS: PCP Physician Assistant
DX: Z32.02 Encounter for pregnancy test, result negative (principal); Z32.01 Encounter for pregnancy test, result positive; F11.21 Opioid dependence, in remission
CPT/HCPCS: 99213

== ENCOUNTER → 2024-02-21 14:50 | Outpatient (BNVA) | payer OTHER, SELFPAY | PROVIDERS: PCP Physician Assistant | DX: F11.21 Opioid dependence, in remission (principal) | CPT/HCPCS: 81025; 96372; Q9992 ==

== ENCOUNTER 2024-04-03 14:52 | Outpatient (AMB) | payer OTHER, SELFPAY ==
[2024-04-03 14:51] VITALS: BP 122/80; PULSE 109; O2SAT 97
--- NOTE | 2024-04-03 14:51 | AM.OFFVISNUR ---
Intake Vital Signs 04/03/24 14:51 BP 122/80 Blood Pressure Location Lt brachial Position Sitting Pulse 109 H Pulse Source Pulse Oximeter Pulse Oximetry (%) 97 Oxygen Delivery Method Room Air Intake Visit Reasons: Sub Inj Allergies No Known Allergies [No Known Allergies*] Allergy (Unverified 04/03/24 14:51) Nursing Note Patient to clinic for sublocade injection, alert and oriented x4. Appeares well, speaking in clear/full sentences. States injection is going well , denies cravings, is still working nights at new job and states she is very happy there. Office Meds Sublocade 100 mg/0.5 mL solution,extended release subcutaneous syringe Performing Provider: Fernanda Tucker CNP Performing Location: [facility] Administered by: Marysol Grady RN on 04/04/24 14:58 Dose Route Admin Location Dispensed Lot Number Expiration Date [facility] Correctional Officer Captain 100 mg subcut RLQ 0.5 mL [id number] 01/24/25 [address]-2 [employer]. Coding Assessment & Plan Assessment & Plan Orders: Orders AMB Buprenorphine Injection - Patient Supplied 04/03/24 F11.21 - Opioid dependence, in remission Medications: New Sublocade ER (buprenorphine) 100 mg (0.5 mL) subcut ONCE 0.5 mL 0RF NS F11.21 - Opioid dependence, in remission
== END 2024-04-03 15:19 | disposition home or self-care (01) ==
PROVIDERS: PCP Physician Assistant
DX: F11.21 Opioid dependence, in remission (principal)

== ENCOUNTER → 2024-04-03 14:52 | Outpatient (BNVA) | payer OTHER, SELFPAY | PROVIDERS: PCP Physician Assistant | DX: F11.20 Opioid dependence, uncomplicated (principal) | CPT/HCPCS: 96372; Q9992 ==

== ENCOUNTER 2024-05-16 09:28 | Outpatient (AMB) | payer OTHER, SELFPAY ==
--- NOTE | 2024-05-16 09:45 | AM.OFFVISNUR ---
Intake Intake Visit Reasons: Sub Inj Allergies No Known Allergies [No Known Allergies*] Allergy (Unverified 04/03/24 14:51) Nursing Note Patient here today in clinic for injection. Pt is alert and oriented x4, in good spirits, speaking in clear/full sentences. Denies any complications with previous injection. Office Meds Sublocade 100 mg/0.5 mL solution,extended release subcutaneous syringe Performing Provider: Fernanda Tucker CNP Performing Location: [facility] Administered by: Marysol Grady RN on 05/15/24 14:04 Dose Route Admin Location Dispensed Lot Number Expiration Date [facility] Immunology Specialist 100 mg subcut Rlq 0.5 mL [id number] 01/28/25 [address]-7 [employer]. Coding Assessment & Plan Assessment & Plan Orders: Orders AMB Buprenorphine Injection - Patient Supplied Today F11.21 - Opioid dependence, in remission Medications: New Sublocade ER (buprenorphine) 100 mg (0.5 mL) subcut ONCE 0.5 mL 0RF NS F11.21 - Opioid dependence, in remission
== END 2024-05-16 10:56 | disposition home or self-care (01) ==
PROVIDERS: PCP Physician Assistant
DX: F11.21 Opioid dependence, in remission (principal)

== ENCOUNTER → 2024-05-16 09:28 | Outpatient (BNVA) | payer OTHER, SELFPAY | PROVIDERS: PCP Physician Assistant | DX: F11.21 Opioid dependence, in remission (principal) | CPT/HCPCS: 96372; Q9992 ==

== ENCOUNTER 2024-05-26 08:39 | Outpatient (AMB) | payer OTHER, MEDICAID, SELFPAY ==
--- NOTE | 2024-05-26 08:42 | A.OFFVISCC_ITS ---
Intake Visit Reasons: MAT Tele Allergies No Known Allergies [No Known Allergies*] Allergy (Unverified 04/03/24 14:51) HPI HPI MAT Tele: Details: Patient presents for follow up via telehealth Has received 2 6 week injections Denies any withdrawal sx in btwn injections June 09 will be 3 years out of addiction strong recovery supports speaks to sponsor daily would like to move to 8 weeks for next injection Review of Systems Const Reports as per HPI and Reports no additional complaints Telehealth Telehealth Telehealth Platform: Telephone Location of provider rendering services: practice address Location of patient: address on file Patient Identification confirmed using: Name, : Yes Telehealth method: voice only Patient verbally consented to treatment: Yes Patient verbally consented to billing insurance company: Yes Minutes spent on Phone/Video with Pt.: 15 Assessment & Plan Assessment & Plan (1) Opioid use disorder, severe, in sustained remission: Code(s): F11.21 - Opioid dependence, in remission Category: Medical Plan: * next injection in 8 weeks
== END 2024-05-26 09:37 | disposition home or self-care (01) ==
PROVIDERS: PCP Physician Assistant; Visit Provider Nurse Practitioner Psychiatric/Mental Health
DX: F11.21 Opioid dependence, in remission (principal)
CPT/HCPCS: 99213

== ENCOUNTER → 2024-05-26 08:39 | Outpatient (BNVA) | payer OTHER, MEDICAID, SELFPAY | PROVIDERS: PCP Physician Assistant; Visit Provider Nurse Practitioner Psychiatric/Mental Health ==

== ENCOUNTER 2024-07-10 11:29 | Outpatient (AMB) | payer OTHER, MEDICAID, SELFPAY ==
--- NOTE | 2024-07-10 15:47 | AM.OFFVISNUR ---
Intake Visit Reasons: Sub Inj Allergies No Known Allergies [No Known Allergies*] Allergy (Unverified 04/03/24 14:51) Nursing Note Patient Presents for sublocode Injection. Current Dose 100mg. Given in the LLQ with no noted or stated complication. Denies any issues with previous injection. Denies symptoms, and denies any break through cravings. Office Meds Sublocade 100 mg/0.5 mL solution,extended release subcutaneous syringe Performing Provider: Fernanda Tucker CNP Performing Location: [facility] Administered by: Marysol Grady RN on 07/10/24 08:51 Dose Route Admin Location Dispensed Lot Number Expiration Date [facility] General Distillery Worker 100 mg subcut LLQ 0.5 mL [id number] 09/26/25 [address]-1 [employer]. Assessment & Plan Assessment & Plan Orders: Orders AMB Buprenorphine Injection - Patient Supplied 07/10/24 F11.90 - Opioid use, unspecified, uncomplicated
== END 2024-07-10 11:52 | disposition home or self-care (01) ==
PROVIDERS: PCP Physician Assistant
DX: F11.90 Opioid use, unspecified, uncomplicated (principal)

== ENCOUNTER → 2024-07-10 11:29 | Outpatient (BNVA) | payer OTHER, MEDICAID, SELFPAY | PROVIDERS: PCP Physician Assistant | DX: F11.90 Opioid use, unspecified, uncomplicated (principal) | CPT/HCPCS: 96372; Q9992 ==

== ENCOUNTER 2024-09-03 10:32 | Outpatient (AMB) | payer MEDICAID, SELFPAY ==
--- NOTE | 2024-09-03 10:43 | MHC.AM.SUB ---
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 Would like for this to be her last injection reviewed plan to check in every couple of months discussed plan to address any sx should they arise--patient stong supports and has bup SL films at home Review of Systems Const Reports as per HPI and Reports no additional complaints Physical Exam Const General: cooperative and healthy appearing Resp Effort & Inspection: normal respiratory effort Psych Appearance: grossly normal Mental Status: mental status grossly normal Speech and movement: Normal speech and movement present Affect: normal affect Attitude: cooperative Office Meds Sublocade 100 mg/0.5 mL solution,extended release subcutaneous syringe Performing Provider: Fernanda Tucker CNP Performing Location: [facility] Administered by: Marysol Grady RN on 09/04/24 09:09 Dose Route Admin Location Dispensed Lot Number Expiration Date [facility] Sizing Sprayer 100 mg subcut 0.5 mL [id number] 09/26/25 [address]-8 [employer]. Assessment & Plan Assessment & Plan (1) Opioid use disorder, severe, in sustained remission: Code(s): F11.21 - Opioid dependence, in remission Category: Medical Plan: tolerated injection follow up as scheduled Orders: Orders AMB Buprenorphine Injection - Patient Supplied 09/03/24 F11.90 - Opioid use, unspecified, uncomplicated
== END 2024-09-03 11:39 | disposition home or self-care (01) ==
PROVIDERS: PCP Physician Assistant; Visit Provider Nurse Practitioner Psychiatric/Mental Health
DX: F11.90 Opioid use, unspecified, uncomplicated (principal); F11.21 Opioid dependence, in remission
CPT/HCPCS: 99214

== ENCOUNTER → 2024-09-03 10:32 | Outpatient (BNVA) | payer OTHER, MEDICAID, SELFPAY | PROVIDERS: PCP Physician Assistant; Visit Provider Nurse Practitioner Psychiatric/Mental Health | DX: F11.21 Opioid dependence, in remission (principal) | CPT/HCPCS: 96372; Q9992 ==

== ENCOUNTER 2024-11-28 08:53 | Outpatient (AMB) | payer MEDICAID, SELFPAY ==
--- NOTE | 2024-11-28 08:54 | MHC.AM.SUB ---
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 [employer] Review of Systems Const Reports as per HPI and Reports no additional complaints Telehealth Telehealth Telehealth Platform: Telephone Location of provider rendering services: practice address Location of patient: address on file Patient Identification confirmed using: Name, : Yes Telehealth method: voice only Patient verbally consented to treatment: Yes Patient verbally consented to billing insurance company: Yes Patient informed of any privacy concerns related to visit: Yes Minutes spent on Phone/Video with Pt.: 15 Assessment & Plan Assessment & Plan (1) Opioid use disorder, severe, in sustained remission: Code(s): F11.21 - Opioid dependence, in remission Category: Medical Plan: follow up 2 months encouraged to call office should she need to before next appt
== END 2024-11-28 09:12 | disposition home or self-care (01) ==
PROVIDERS: PCP Physician Assistant; Visit Provider Nurse Practitioner Psychiatric/Mental Health
DX: F11.21 Opioid dependence, in remission (principal)
CPT/HCPCS: 99213

== ENCOUNTER → 2024-11-28 08:53 | Outpatient (BNVA) | payer MEDICAID, SELFPAY | PROVIDERS: PCP Physician Assistant; Visit Provider Nurse Practitioner Psychiatric/Mental Health | DX: Z32.01 Encounter for pregnancy test, result positive (principal); F11.90 Opioid use, unspecified, uncomplicated ==